=== PATIENT | female | born 1975 | race Asian ===

== ENCOUNTER 2021-08-13 21:22 | Inpatient (IN) | payer OTHER, SELFPAY ==
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
[2021-08-13 22:44] VITALS: BP 139/94; PULSE 88; RESP 18; TEMP 36.6; O2SAT 100
--- NOTE | 2021-08-13 22:53 | PC.ADMIT ---
46 y.o female admitted from [facility] for psychiatric evaluation. Per crisis report- Pts requested an evaluation due to poor sleep, speaking without making sense, and odd behaviors that were freighting their children. Pt has been suffering from insomnia and has not had a full night of sleep in about two weeks. Pt suspicious and paranoid about crisis evaluation. Pt with labile affect when interacting with crisis staff. Pt had a medication and physical hold restraint in [place] two days ago. Pt reports I was acting crazy for the reason that she was restrained. Pt reports Her therapist wants me to see OBGYN for perimenopas . Pt believes that this might be the cause of her not sleeping and having racing thoughts . Pt A&Ox4, anxious, depressed and cooperative. Pt thought process relevant and organized in this interaction. Pt denies si,hi, avh on admission. Admission complete. Pt on unit safety checks.
[2021-08-13] MEDS: QUEtiapine Fumarate 25 MG TABLET PO (23:21)
--- NOTE | 2021-08-13 23:26 | PC.NURSE ---
Pt signed 3 day notice 08/13/21 up on 08/16/21
[2021-08-14] MEDS: traZODone HCL 50 MG TABLET PO (02:56)
[2021-08-14] MEDS: hydrOXYzine HCL 25 MG TABLET PO (02:56)
[2021-08-14 06:00] VITALS: BP 122/82; PULSE 81; RESP 18; TEMP 36.7; O2SAT 100
[2021-08-14 08:13] LABS: MANUAL DIFF FLAG NO
[2021-08-14 08:17] LABS: Basophils Absolute Auto 0.1 X10*3/uL (0.0-0.2); Basophils Percent Auto 0.9 % (0-2); Eosinophils Absolute Auto 0.2 X10*3/uL (0.0-0.4); Eosinophils Percent Auto 2.8 % (0-4); Hematocrit 40.5 % (37-47); Hemoglobin 13.8 g/dl (12.0-16.0); Imm Gran Abs Auto 0.03 X10*3/uL (0.00-0.03); Imm Gran Pct Auto 0.4 % (0.0-0.4); Lymphocytes Absolute Auto 2.1 X10*3/uL (1.2-4.9); Lymphocytes Percent Auto 25.6 % (20-40); Mean Corpuscular HGB Conc 34.1 g/dl (31.0-35.0); Mean Corpuscular Hemoglobin 31.6 pg (27.0-33.0); Mean Corpuscular Volume 92.7 fL (80-98); Mean Platelet Volume 8.4 fL (9.4-12.3); Monocytes Absolute Auto 0.8 X10*3/uL (0.1-1.2); Monocytes Percent Auto 9.5 % (2-11); Neutrophils Percent Auto 60.8 % (45-73); Platelet Count 310 X10*3/uL (160-400); Red Blood Count 4.37 X10*6/uL (4.20-5.50); Red Cell Distribution Width 11.6 % (11.0-16.0); White Blood Count 8.2 X10*3/uL (4.8-10.8)
[2021-08-14 08:37] VITALS: BP 137/85; PULSE 100
[2021-08-14] MEDS: lamoTRIgine 100 MG TABLET PO (08:37)
[2021-08-14] MEDS: lisinopriL 5 MG TABLET PO (08:37)
[2021-08-14] MEDS: buPROPion HCl XL 150 MG TAB.ER.24H PO (08:37)
[2021-08-14 09:00] LABS: Alanine Aminotransferase 14 U/L (0-31); Albumin Level 4.6 g/dL (3.5-5.0); Alkaline Phosphatase 57 U/L (39-117); Anion Gap 12 (12-20); Aspartate Amino Transferase 24 U/L (5-31); Bilirubin Total 0.9 mg/dL (0.0-1.0); Blood Urea Nitrogen 11 mg/dL (9-16); Calcium 9.2 mg/dL (8.4-10.2); Carbon Dioxide 28 mmol/L (22-29); Chloride 102 mmol/L (96-108); Cholesterol 150 mg/dL; Estimated Glomerular Filt Rate > 60; Glucose Random 84 mg/dL (60-115); HDL Cholesterol 41 mg/dL; LDL Cholesterol Calculated 97 mg/dl; Potassium 4.5 mmol/L (3.3-5.1); Sodium 137 mmol/L (135-145); Total Protein 7.1 g/dL (6.5-8.0); Triglycerides 60 mg/dL
--- NOTE | 2021-08-14 16:31 | P.PNPSI_ITS ---
Subjective Subjective Date of Service: 08/14/21 Reason For Visit: Depression, hyposomnia Subjective Notes: Pierce Warning Interim History: Seen on 08/15 Medical Office Representative reviewed patients history. Patient reports that she has struggled with depression and anxiety for years. Much of it stemming from her childhood and her mother's impossible standard and expectation of perfection. This past October 2020 she may have had a hypomanic episode that may have been triggered by starting Zoloft. It is not fully clear to typewriter ribbon winder that this was an actual manic episode since patient remained organized, had insight and did not seem to have other symptoms typical of hypomania (though she did have trouble with sleep) and got flustered seemingly only because she had taken on one too many volunteer positions out of a sense of obligation; stretching herself thin caused her to struggle to complete tasks and obligations which triggered depression and following this hypomanic week (pr ovisional accepted), she became depressed and did attempt suicide and was psychiatrically admitted. Over the subsequent months leading to this fall patient said her mood was good. She may have had 1 episode where she had poor sleep but it is not clear if this was also associated with manic symptoms. This past week and a half, patient was having a lot of trouble sleeping. She said her mind was racing but it was focused on all the stuff she had to do in the morning like what is she going to make for meals, which practices the she after bring her kids too, did homework get completed etc. and sounds a lot MALORIE; otherwise no other manic symptoms. This past Friday however she did start acting crazy some of which is detailed in H and P. This only lasted for 1 day but did prompt her coming to the hospital. It only lasted for that 1 day, seems to have fully resolved and has not been present since admission. Currently patient reports that her mood is better and thinks combination of Wellbutrin and Lamictal have helped. She denies any SI at all however she is having trouble sleeping still, only getting about 2 hours a night. Medical Office Representative and patient thoroughly discussed medications reviewing risks/side effects. Given the fact that her diagnosis of bipolar type 2 is a question, she agrees to increase Lamictal. For sleep, patient says in the past she has slept with Benadryl and agrees to schedule this for tonight; if she does not sleep with Benadryl, trazodone and then Ambien are ordered as p.r.n. to be given in out order for continued insomnia. Medical Office Representative and patient also discussed clonidine since she does have some hypertension and this may help with nighttime anxiety which is typically when she worries. Mental Status Exam Mental Status Exam Narrative: ?A&O. casual cloths, good hygiene, normal body habitus. Good eye contact, attentive. No Tics or Tremors. No abnormal involuntary movements. Calm, cooperative, engaged. Non-pressured speech, spontaneous with regular rate and rhythm, normal volume and prosody. No prolonged speech latency or dysarthria. Mood is ?tired,? affect is appropriate. Denies SI/SIB/HI upon inquiry. Denies A/VH, (though reports recent paranoid delusional thought content that has since resovled). Thoughts are coherent, organized. No known cognitive or memory impairment. Insight/ Judgment intact. Diagnostics Vital Signs (24Hr): Vital Signs - 24 hr 08/13/21 22:44 08/14/21 06:00 08/14/21 08:37 Temperature 97.9 F 98.1 F Pulse Rate 88 81 100 Respiratory Rate 18 18 Blood Pressure 139/94 H 122/82 137/85 Pulse Oximetry 100 100 Labs Results: 08/14/21 07:50 08/14/21 07:50 Labs: Laboratory Results - last 48 hr 08/14/21 08/14/21 07:50 07:50 WBC 8.2 RBC 4.37 Hgb 13.8 Hct 40.5 MCV 92.7 MCH 31.6 MCHC 34.1 RDW 11.6 Plt Count 310 MPV 8.4 L Immature Gran % (Auto) 0.4 Neut % (Auto) 60.8 Lymph % (Auto) 25.6 Dubois % (Auto) 9.5 Eos % (Auto) 2.8 Baso % (Auto) 0.9 Lymph # (Auto) 2.1 Dubois # (Auto) 0.8 Eos # (Auto) 0.2 Baso # (Auto) 0.1 Abs Immat Gran (auto) 0.03 Absolute Neuts (auto) 5.0 Absolute Nucleated RBC 0.000 Nucleated RBC % (auto) 0.0 Sodium 137 Potassium 4.5 Chloride 102 Carbon Dioxide 28 Anion Gap 12 BUN 11 Creatinine 0.81 Estim Creat Clear Calc TNP Estimated GFR > 60 Random Glucose 84 Calcium 9.2 Total Bilirubin 0.9 AST 24 ALT 14 Alkaline Phosphatase 57 Total Protein 7.1 Albumin 4.6 Triglycerides 60 Cholesterol 150 LDL Cholesterol, Calc 97 HDL Cholesterol 41 Medications Medications Current Medications Acetaminophen (Acetaminophen 325 Mg Tablet) 650 mg PO Q6H PRN PRN Reason: Headache/Pain Mild Scale (1-3) Al Hydroxide/Mg Hydroxide (Magnesium Hydrox/Alum Hydrox 30 Ml Oral.Susp) 30 ml PO Q6H PRN PRN Reason: Heartburn/Nausea Bupropion HCl (Bupropion Hcl Xl 150 Mg Tab.Er.24h) 150 mg PO DAILY REBECCA Last Admin: 08/14/21 08:37 Dose: 150 mg Documented by: Diphenhydramine HCl (Diphenhydramine Hcl 25 Mg Tablet) 50 mg PO BEDTIME REBECCA Hydroxyzine HCl (Hydroxyzine Hcl 25 Mg Tablet) 25 mg PO Q6H PRN PRN Reason: Anxiety Last Admin: 08/14/21 02:56 Dose: 25 mg Documented by: Lamotrigine (Lamotrigine 25 Mg Tablet) 125 mg PO DAILY REBECCA Lisinopril (Lisinopril 5 Mg Tablet) 5 mg PO DAILY REBECCA; Protocol Last Admin: 08/14/21 08:37 Dose: 5 mg Documented by: Magnesium Hydroxide (Milk Of Magnesia 30 Ml Oral.Susp) 30 ml PO DAILY PRN PRN Reason: Constipation Trazodone HCl (Trazodone Hcl 100 Mg Tablet) 100 mg PO BEDTIME PRN PRN Reason: CONTINUED INSOMNIA Zolpidem Tartrate (Zolpidem Tartrate 5 Mg Tablet) 5 mg PO BEDTIME PRN PRN Reason: Insomnia Allergies Allergies Allergy/AdvReac Type Severity Reaction Status Date / Time No Known Allergies Allergy Unverified 08/13/21 21:51 Assessment & Plan Assessment & Plan (1) Bipolar II disorder: Status: Acute Code(s): F31.81 - Bipolar II disorder Assessment and Plan: Impression: Pt is a 46 y.o. Female who carries a dx of Bipolar II disorder. Pt was assessed by [facility] on 08/11/21 at her home at the request of her due to hyposomnia x 2 weeks, erratic and incoherent behavior. Pt is currently denying sx of depression. Says she is struggling with anxiety and poor sleep but feels tired. Denies psychotic sx or delusional thought content on admission and presents organized, linear; Hospital course/Reasoning disorganized/delusinal behavior resolved on admission; no SI; overall good mood; still can't sleep (on 2 hours) She denies any SI at all however she is having trouble sleeping still, only getting about 2 hours a night. Medical Office Representative and patient thoroughly discussed medications reviewing risks/side effects. Given the fact that her diagnosis of bipolar type 2 is a question, she agrees to increase Lamictal. For sleep, patient says in the past she has slept with Benadryl and agrees to schedule this for tonight; if she does not sleep with Benadryl, trazodone and then Ambien are ordered as p.r.n. to be given in out order for continued insomnia. Medical Office Representative and patient also discussed clonidine since she does have some hypertension and this may help with nighttime anxiety which is typically when she worries. DX -Provisional diagnosis of bipolar type 2; however it is possible that high anxiety, impeding sleep could combined to produce some hypomanic symptoms and her recent 1 day delusional episode -MALORIE -Patient asked if perhaps being perimenopausal could cause symptoms to which typewriter ribbon winder agreed could certainly be contributory -patient did get a dose of Haldol in the ED which likely helped either by breaking an organic augusto or by simply by helping patient rest; t is noted that patient has no history of psychotic illness and this recent episode lasted for 1 day Plan: Three day notice -INCREASED on 08/14 Lamictal to 125 mg daily for help with mood stability and possibly with anxiety; will try to maximize this medication and limit polypharmacy; likely titrate to 150 -Continue Wellbutrin; feels dose has helped with depression -START Benadryl 50 mg q.h.s. for sleep since this is help before -FOR CONTINUED INSOMNIA trazodone 100 mg and then if still not sleeping or for early waking Ambien 5 mg -if the patient sleeps, will consider using clonidine at bedtime to reduce anx iety and subsequent autonomic symptoms and reserve sleep meds for p.r.n. Monitor response to medications. Monitor for safety in the milieu. Discharge on stabilization. Obtain collateral contact info?as needed Patient seen. Chart reviewed. Discussed with team who agree that diagnosis is unclear. I spent minutes with the patient and/or on the patient floor today, gre ater than?50% of which was spent counseling/coordinating care. Reason for contiued inpatient stay Substantial Risk for: med/psych decompensation
[2021-08-14] MEDS: lamoTRIgine 25 MG TABLET PO (17:50)
[2021-08-14 19:15] VITALS: BP 134/71; PULSE 88; TEMP 36.7; O2SAT 98
[2021-08-14] MEDS: diphenhydrAMINE HCL 25 MG TABLET 50 MG PO (20:37)
[2021-08-14] MEDS: traZODone HCL 100 MG TABLET PO (21:29)
[2021-08-14] MEDS: Zolpidem Tartrate 5 MG TABLET PO (22:49)
[2021-08-15 06:00] VITALS: BP 106/62; PULSE 82; TEMP 36.6; O2SAT 98
[2021-08-15 08:44] VITALS: BP 148/85; PULSE 88
[2021-08-15] MEDS: lisinopriL 5 MG TABLET PO (08:44)
[2021-08-15] MEDS: buPROPion HCl XL 150 MG TAB.ER.24H PO (08:45)
[2021-08-15] MEDS: lamoTRIgine 25 MG TABLET 125 MG PO (08:46)
--- NOTE | 2021-08-15 10:49 | P.CONIM_ITS ---
History of Present Illness Data of Consult Service Date: 08/15/21 Primary Care Provider: Kassandra Pastrana MD HPI Reason for consult: Routine Medical History This is a 46 yo F admitted to the inpatient psych unit. Medical consult requested for routine medical H&P. Patient is seen and examined on M5. She denies any medical history. She denies any physical complaints other than chronic back pain. PMH Chronic Back pain PSH denies SH Denies tobacco use Denies active EtOH, used 5+ years ago Denies illicit substance use FH DM+HTN in father Thyroid disease in mother Review of Systems Review of Systems: no chest pain no abd pain no sob pain chronic back pain PMFSH Pertinent family history: . Social History Household Members: Spouse and Children Household Members Other:: and three boys Housing: House Do you presently have visiting nurse or other home services: No Patient Tobacco Use Status: Former Tobacco user Smoked in Last 30 Days: No Patient Interested in Nicotine Replacement: No Patient Given Instructions on How to Stop Smoking: No Second Hand Smoke Exposure: No Use of substances other than those prescribed or required for medical reasons: No Currently Displaying Signs/Symptoms of Drug Intoxication Withdrawal: No Have you been hit, kicked, punched, or otherwise hurt by someone within the past year? If so, by whom?: No Do you feel safe in your current relationship?: Yes Is there a partner from a previous relationship who is making you feel unsafe now?: No Are you made to feel afraid or neglected: No [facility] Practices: Rastafarian Advance Directives: No Advance Directives Information Provided: Yes Do you have thoughts of harming others: None Do you have a plan to hurt others: No Plan Recently lost weight without trying: No Eating poorly because of decreased appetite: No Nutrition Risks: No Nutritional Risk Patient : No : No Poor oral hygiene: No service: No Sexual orientation: Straight/Heterosexual Meds Allergies Allergy/AdvReac Type Severity Reaction Status Date / Time No Known Allergies Allergy Unverified 08/13/21 21:51 Active Medications: Current Medications Acetaminophen (Acetaminophen 325 Mg Tablet) 650 mg PO Q6H PRN PRN Reason: Headache/Pain Mild Scale (1-3) Al Hydroxide/Mg Hydroxide (Magnesium Hydrox/Alum Hydrox 30 Ml Oral.Susp) 30 ml PO Q6H PRN PRN Reason: Heartburn/Nausea Bupropion HCl (Bupropion Hcl Xl 150 Mg Tab.Er.24h) 150 mg PO DAILY [facility] Last Admin: 08/15/21 08:45 Dose: 150 mg Documented by: Diphenhydramine HCl (Diphenhydramine Hcl 25 Mg Tablet) 50 mg PO BEDTIME REBECCA Last Admin: 08/14/21 20:37 Dose: 50 mg Documented by: Hydroxyzine HCl (Hydroxyzine Hcl 25 Mg Tablet) 25 mg PO Q6H PRN PRN Reason: Anxiety Last Admin: 08/14/21 02:56 Dose: 25 mg Documented by: Lamotrigine (Lamotrigine 25 Mg Tablet) 125 mg PO DAILY [facility] Last Admin: 08/15/21 08:46 Dose: 125 mg Documented by: Lisinopril (Lisinopril 5 Mg Tablet) 5 mg PO DAILY [facility]; Protocol Last Admin: 08/15/21 08:44 Dose: 5 mg Documented by: Magnesium Hydroxide (Milk Of Magnesia 30 Ml Oral.Susp) 30 ml PO DAILY PRN PRN Reason: Constipation Trazodone HCl (Trazodone Hcl 100 Mg Tablet) 100 mg PO BEDTIME PRN PRN Reason: CONTINUED INSOMNIA Last Admin: 08/14/21 21:29 Dose: 100 mg Documented by: Zolpidem Tartrate (Zolpidem Tartrate 5 Mg Tablet) 5 mg PO BEDTIME PRN PRN Reason: Insomnia Last Admin: 08/14/21 22:49 Dose: 5 mg Documented by: Physical Exam Vital Signs and Narrative: Vital Signs: Last Vital Signs Temp 97.8 F 08/15/21 06:00 Pulse 88 08/15/21 08:44 Resp 18 08/14/21 06:00 BP 148/85 H 08/15/21 08:44 Pulse Ox 98 08/15/21 06:00 Const: Other: General - no acute distress, appears comfortable Cardiovascular - regular rate and rhythm, S1-S2 Lungs - normal respiratory effort, clear to auscultation bilaterally, no wheezing Abdomen - soft, nontender, no rebound or guarding Extremities - no edema bilaterally; SLR negative bilaterally; no spinal or paraspinal TTP Neuro - awake and alert, no focal deficits; CN 2-12 bilaterally intact Results Labs CBC and Chem 7: 08/14/21 07:50 08/14/21 07:50 Assessment and Plan (1) Routine medical exam: Status: Acute 46 yo F admitted to the psych unit. Medical consultation sought for routine medical H&P. Patient has no active nor chronic medical issues. Patient has been counseled on age appropriate health maintenance as an outp atient. Continue care per primary team. Please re-consult if any issues arise.
[2021-08-15 17:08] VITALS: BP 117/56; PULSE 78; RESP 16; TEMP 36.2; O2SAT 94
[2021-08-15 20:03] VITALS: BP 127/81; PULSE 84
[2021-08-15] MEDS: cloNIDine HCL 0.1 MG TABLET PO (20:03)
[2021-08-16] MEDS: diphenhydrAMINE HCL 25 MG TABLET 50 MG PO (01:20)
[2021-08-16 06:00] VITALS: BP 120/78; PULSE 98; TEMP 36.6; O2SAT 98
--- NOTE | 2021-08-16 08:50 | HO.PSYCHPN ---
Subjective Subjective Date of Service: 08/15/21 Reason For Visit: Depression, hyposomnia Interim History: pt seen 08/15 good mood; no SI; still a little hard to sleep but feeling stable for discharge. no delusional thinking Mental Status Exam Mental Status Exam Narrative: A&O. casual cloths, good hygiene, normal body habitus. Good eye contact, attentive. No Tics or Tremors. No abnormal involuntary movements. Calm, cooperative, engaged. Non-pressured speech, spontaneous with regular rate and rhythm, normal volume and prosody. No prolonged speech latency or dysarthria. Mood is ?tired,? affect is appropriate. Denies SI/SIB/HI upon inquiry. Denies A/VH, (though reports recent paranoid delusional thought content that has since resovled). Thoughts are coherent, organized. No known cognitive or memory impairment. Insight/ Judgment intact. Diagnostics Vital Signs (24Hr): Vital Signs - 24 hr 08/15/21 17:08 08/15/21 20:03 08/16/21 06:00 Temperature 97.2 F 97.8 F Pulse Rate 78 84 98 Respiratory Rate 16 Blood Pressure 117/56 L 127/81 120/78 Pulse Oximetry 94 98 Labs Results: 08/14/21 07:50 08/14/21 07:50 Labs: Laboratory Results - last 48 hr 08/14/21 07:50 Sodium 137 Potassium 4.5 Chloride 102 Carbon Dioxide 28 Anion Gap 12 BUN 11 Creatinine 0.81 Estim Creat Clear Calc TNP Estimated GFR > 60 Random Glucose 84 Calcium 9.2 Total Bilirubin 0.9 AST 24 ALT 14 Alkaline Phosphatase 57 Total Protein 7.1 Albumin 4.6 Triglycerides 60 Cholesterol 150 LDL Cholesterol, Calc 97 HDL Cholesterol 41 Medications Medications Current Medications Acetaminophen (Acetaminophen 325 Mg Tablet) 650 mg PO Q6H PRN PRN Reason: Headache/Pain Mild Scale (1-3) Al Hydroxide/Mg Hydroxide (Magnesium Hydrox/Alum Hydrox 30 Ml Oral.Susp) 30 ml PO Q6H PRN PRN Reason: Heartburn/Nausea Bupropion HCl (Bupropion Hcl Xl 150 Mg Tab.Er.24h) 150 mg PO DAILY REBECCA Last Admin: 08/15/21 08:45 Dose: 150 mg Documented by: Clonidine HCl (Clonidine Hcl 0.1 Mg Tablet) 0.1 mg PO BEDTIME REBECCA; Protocol Last Admin: 08/15/21 20:03 Dose: 0.1 mg Documented by: Diphenhydramine HCl (Diphenhydramine Hcl 25 Mg Tablet) 50 mg PO Q4H PRN PRN Reason: nighttime Anxiety Last Admin: 08/16/21 01:20 Dose: 50 mg Documented by: Hydroxyzine HCl (Hydroxyzine Hcl 25 Mg Tablet) 25 mg PO Q6H PRN PRN Reason: Anxiety Last Admin: 08/14/21 02:56 Dose: 25 mg Documented by: Lamotrigine (Lamotrigine 25 Mg Tablet) 125 mg PO DAILY REBECCA Last Admin: 08/15/21 08:46 Dose: 125 mg Documented by: Lisinopril (Lisinopril 5 Mg Tablet) 5 mg PO DAILY REBECCA; Protocol Last Admin: 08/15/21 08:44 Dose: 5 mg Documented by: Magnesium Hydroxide (Milk Of Magnesia 30 Ml Oral.Susp) 30 ml PO DAILY PRN PRN Reason: Constipation Zolpidem Tartrate (Zolpidem Tartrate 5 Mg Tablet) 5 mg PO BEDTIME PRN PRN Reason: Insomnia Last Admin: 08/14/21 22:49 Dose: 5 mg Documented by: Allergies Allergies Allergy/AdvReac Type Severity Reaction Status Date / Time No Known Allergies Allergy Unverified 08/13/21 21:51 Assessment & Plan Assessment & Plan (1) Routine medical exam: Status: Deleted Code(s): Z00.00 - Encounter for general adult medical examination without abnormal findings Assessment and Plan: Impression: Pt is a 46 y.o. Female who carries a dx of Bipolar II disorder. Pt was assessed by [facility] on 08/11/21 at her home at the request of her due to hyposomnia x 2 weeks, erratic and incoherent behavior. Pt is currently denying sx of depression. Says she is struggling with anxiety and poor sleep but feels tired. Denies psychotic sx or delusional thought content on admission and presents organized, linear; Hospital course/Reasoning disorganized/delusinal behavior resolved on admission; no SI; overall good mood; still can't sleep (on 2 hours) ?She denies any SI at all however she is having trouble sleeping still, only getting about 2 hours a night.? Operations Administrative Assistant and patient thoroughly discussed medications reviewing risks/side effects.? Given the fact that her diagnosis of bipolar type 2 is a question, she agrees to increase Lamictal.? For sleep, patient says in the past she has slept with Benadryl and agrees to schedule this for tonight; if she does not sleep with Benadryl, trazodone and then Ambien are ordered as p.r.n. to be given in out order for continued insomnia.? Operations Administrative Assistant and patient also discussed clonidine since she does have some hypertension and this may help with nighttime anxiety which is typically when she worries. DX -Provisional diagnosis of bipolar type 2; however it is possible that high anxiety, impeding sleep could combined to produce some hypomanic symptoms and her recent 1 day delusional episode -MALORIE -Patient asked if perhaps being perimenopausal could cause symptoms to which typewriters functional tester agreed could certainly be contributory -patient did get a dose of Haldol in the ED which likely helped either by breaking an organic augusto or by simply by helping patient rest; t is noted that patient has no history of psychotic illness and this recent episode lasted for 1 day Plan: Three day notice -INCREASED on 08/14 Lamictal to 125 mg daily for help with mood stability and possibly with anxiety; will try to maximize this medication and limit polypharmacy; likely titrate to 150 -Continue? Wellbutrin; feels dose has helped with depression -START Benadryl 50 mg q.h.s. for sleep since this is help before -FOR CONTINUED INSOMNIA trazodone 100 mg and then if still not sleeping or for early waking Ambien 5 mg -if the patient sleeps, will consider using clonidine at bedtime to reduce anxiety and subsequent autonomic symptoms and reserve sleep meds for p.r.n. Monitor response to medications. Monitor for safety in the milieu. Discharge on stabilization. Obtain collateral contact info?as needed I spent minutes with the patient and/or on the patient floor today, greater than?50% of which was spent counseling/coordinating care. Reason for contiued inpatient stay Substantial Risk for: stable for discharge
[2021-08-16 08:52] VITALS: BP 120/63; PULSE 80; RESP 16
--- NOTE | 2021-08-16 09:05 | P.DS_ITS ---
DS: Providers Provider Date of Service: 08/16/21 Date of admission: 08/13/21 21:22 Date of discharge: 08/16/21 Primary care physician: Kassandra Pastrana MD Attending physician on admission: Jeremias Whitaker Consults: 08/13/21 21:51 Consult to Hospitalist Routine Consulting Provider: Hospitalist Reason For Exam: new admit from [facility] [place] 08/15/21 09:38 Consult to Hospitalist Routine Consulting Provider: Hospitalist Reason For Exam: ADMISSION PHYSICAL Attending physician on discharge: Jeremias Whitaker DS: Diagnosis Discharge Diagnosis (1) Bipolar II disorder: Status: Chronic (2) MALORIE (generalized anxiety disorder): Status: Chronic DS: Medications Discharge Medications Home Medications: Home Medications Medication Instructions Recorded Confirmed betamethasone dipropionate 0.05 % TOPICAL 08/15/21 topical ointment lisinopril 5 mg tablet 1 tab PO DAILY 08/15/21 08/15/21 Previous Rx's Medication Instructions Recorded bupropion HCl 150 mg 24 hr tablet, 150 mg PO DAILY 30 Days #30 tab 08/16/21 extended release clonidine HCl 0.1 mg tablet 0.1 mg PO BEDTIME PRN 30 Days #30 08/16/21 tab diphenhydramine HCl 25 mg tablet 50 mg PO BID PRN 30 Days #60 tab 08/16/21 (Allergy Relief (diphenhydramine)) lamotrigine 25 mg tablet 125 mg PO DAILY 30 Days #150 tab 08/16/21 zolpidem 5 mg tablet 5 mg PO BEDTIME PRN 15 Days #15 tab 08/16/21 Mental Status Exam Mental Status Exam Narrative: A&O. casual cloths, good hygiene, normal body habitus. Good eye contact, attentive. No Tics or Tremors. No abnormal involuntary movements. Calm, cooperative, engaged. Non-pressured speech, spontaneous with regular rate and rhythm, normal volume and prosody. No prolonged speech latency or dysarthria. Mood is ?good? affect is appropriate. Denies SI/SIB/HI upon inquiry. Denies A/VH; no delusional thinking; Thoughts are coherent, organized, linear, logical; No known cognitive or memory impairment. Insight/ Judgment intact. Data Data Completed and Pending Completed studies during hospitalization [Text1]: 08/14/21 08/14/21 07:50 07:50 WBC 8.2 RBC 4.37 Hgb 13.8 Hct 40.5 MCV 92.7 MCH 31.6 MCHC 34.1 RDW 11.6 Plt Count 310 MPV 8.4 L Immature Gran % (Auto) 0.4 Neut % (Auto) 60.8 Lymph % (Auto) 25.6 [place] % (Auto) 9.5 Eos % (Auto) 2.8 Baso % (Auto) 0.9 Lymph # (Auto) 2.1 [place] # (Auto) 0.8 Eos # (Auto) 0.2 Baso # (Auto) 0.1 Abs Immat Gran (auto) 0.03 Absolute Neuts (auto) 5.0 Absolute Nucleated RBC 0.000 Nucleated RBC % (auto) 0.0 Sodium 137 Potassium 4.5 Chloride 102 Carbon Dioxide 28 Anion Gap 12 BUN 11 Creatinine 0.81 Estim Creat Clear Calc TNP Estimated GFR > 60 Random Glucose 84 Calcium 9.2 Total Bilirubin 0.9 AST 24 ALT 14 Alkaline Phosphatase 57 Total Protein 7.1 Albumin 4.6 Triglycerides 60 Cholesterol 150 LDL Cholesterol, Calc 97 HDL Cholesterol 41 DS: Summary Hospital Course Hospital Course: Pt is a 46 y.o. Female who carries a dx of Bipolar II disorder. Pt was assessed by [facility] on 08/11/21 at her home at the request of her due to hyposomnia x 2 weeks, erratic and incoherent behavior. Pt is currently denying sx of depression. Says she is struggling with anxiety and poor sleep but feels tired. Denies psychotic sx or delusional thought content on admission and presents organized, linear; Hospital course disorganized/delusinal behavior resolved on admission; no SI; overall good mood throughout admission. Pt was forthcoming in interviews and demonstrated good behavioral and impulse control throughout her admission; appropriate with peers and staff, going to groups. Pt placed 3 day notice. Patient reported ongoing trouble with sleep, only getting about 2 hours a night.? Charge Loader and patient thoroughly discussed medications reviewing risks/side effects.? Given the fact that her provisional diagnosis of bipolar type 2, she agrees to increase Lamictal to 125mg.? For sleep, clonidine proved helpful as much of her insomnia is due to anxiety; however Benadryl and trazodone also on board and she was given ambien incase of insomnia as outpt which triggered manic-esque episode. Family meeting on discharge with . Pt was in good mood and future oriented; no SI, no delusional content, clear minded. Pt 3 day notice due. Pt not in imminent risk of harm to self or others and her request for discharge honored. DX -Provisional diagnosis of bipolar type 2; however it is possible that high anxiety, impeding sleep could combined to produce some hypomanic symptoms and her recent 1 day delusional episode Time spent discussing smoking cessation with patient: 3 to 10 minutes (non smoker) Status at Discharge Functional status at discharge: independent ambulation Overall status at discharge: patient is back to baseline Time Spent with Patient Time attestation: Total time spent providing and/or coordinating discharge services: Time spent: Greater than 30 minutes Discharge Plan Discharge Patient Disposition: Home, Self-Care Discharge Diagnosis: Bipolar disorder, Type II (provisional); MALORIE Referrals: Psych Prescriber: Melonie Marin ([facility]) [Other] - 09/21/21 8:00 am (Telehealth Melonie's medical research assistant is trying to touch base with Melonie to try to get an earlier appointment or have you placed on cancellation list. The office will call you ) Therapist: Bette Lombardi ([facility]) [Other] - 08/21/21 12:00 pm (Telehealth) Kassandra Pastrana MD [Primary Care Provider] - 08/27/21 10:05 am (in office) Discharge Medications: New diphenhydramine HCl [Allergy Relief(diphenhydramin)] 25 mg Tablet 50 mg PO BID PRN (Reason: anxiety) 30 Days Qty: 60 RF: 0 clonidine HCl 0.1 mg Tablet 0.1 mg PO BEDTIME PRN (Reason: insomnia) 30 Days Qty: 30 RF: 0 bupropion HCl 150 mg Tablet Extended Release 24 Hr 150 mg PO DAILY 30 Days Qty: 30 RF: 0 zolpidem 5 mg Tablet 5 mg PO BEDTIME PRN (Reason: Insomnia) 15 Days Qty: 15 RF: 1 lamotrigine [Lamictal] 25 mg tablet 25 mg PO DAILY 30 Days Qty: 30 RF: 0 lamotrigine [Lamictal] 100 mg tablet 100 mg PO DAILY 30 Days Qty: 30 RF: 0 Continued lisinopril 5 mg tablet 1 tab PO DAILY RF: 0 betamethasone dipropionate 0.05 % ointment topical RF: 0 Discontinued bupropion HCl 150 mg tablet sustained-release 12 hr 1 tab PO QAM RF: 0 bupropion HCl 100 mg tablet sustained-release 12 hr 1 tab PO DAILY RF: 0 lamotrigine [Lamictal] 100 mg tablet 1 tab PO QAM RF: 0 Discharge Orders: Discharge Order (Routine); Ordered 08/16/21 Ordered By: Jeremias Whitaker Diet: regular diet Activity on Discharge: As tolerated Stand Alone Forms: Patient Portal Discharge page Care Plan Goals: Maintain mood and safe behaviors Take medications as prescribed Practice coping skills Continue with outpatient providers and reach out to them as needed Health Concerns: Mood stability and behaviors Hypertension Plan of Treatment: Follow up with your PCP, psychiatric provider and other outpatient providers regarding above concerns Take medications as prescribed Assessment: Risk assessment at time of discharge:? Patient was interviewed prior to discharge and found to be fully oriented and without any SI or HI. Patient has insight and demonstrates good judgment in terms of wanting to pursue treatment. Patient is not in imminent risk of harm to self or others and has a safety plan that includes presenting to the closest ER or calling 911 if feeling unsafe.? Patient has been observed closely by nursing and unit staff throughout admission; patient has not engaged in any behaviors that suggest dangerousness to self or others and has demonstrated appropriate behaviors and impulse control Discharge Date/Time: 08/16/21 12:37
[2021-08-16 09:13] VITALS: BP 120/63; PULSE 80
[2021-08-16] MEDS: lamoTRIgine 25 MG TABLET 125 MG PO (09:13)
[2021-08-16] MEDS: lisinopriL 5 MG TABLET PO (09:13)
[2021-08-16] MEDS: buPROPion HCl XL 150 MG TAB.ER.24H PO (09:14)
== END 2021-08-16 12:37 | disposition home or self-care (01) | DRG 885 ==
PROVIDERS: Registered Nurse; Admitting Provider Psychiatry & Neurology Psychiatry; PCP Family Medicine; Visit Provider Psychiatry & Neurology Psychiatry
DX: F31.81 Bipolar II disorder (principal); F41.1 Generalized anxiety disorder; Z87.891 Personal history of nicotine dependence; Z79.899 Other long term (current) drug therapy
CPT/HCPCS: 36415; 80053; 80061; 85025; Q0163